=== PATIENT | female | born 1960 | race Caucasian/White ===

== ENCOUNTER 2017-11-24 18:10 | Emergency (ER) | payer MEDICAID ==
[2017-11-24 18:10] VITALS: BMI 26.5
[2017-11-24 18:35] VITALS: RESP 20
[2017-11-24] MEDS ORDERED: Sodium Chloride 0.9% 1,000 ML IV ONE (19:09)
[2017-11-24 19:48] LABS: BASO % 0.7 % (0.0-2.0); EOS # 0.1 K/uL (0.0-0.7); EOS % 1.4 % (0.0-4.0); HEMOGLOBIN 12.8 g/dL (11.0-16.0); LYMPH # 1.4 K/uL (1.0-4.3); LYMPH % 22.6 % (20.0-40.0); MEAN CELL VOLUME 73.7 fL (81.0-99.0); MEAN CORPUSCULAR HEMOGLOBIN 23.5 pg (27.0-31.0); MEAN CORPUSCULAR HGB CONC 31.8 g/dL (33.0-37.0); MEAN PLATELET VOLUME 7.8 fL (7.2-11.7); MONO % 15.4 % (0.0-10.0); NEUT # 3.7 K/uL (1.8-7.0); NEUT % 59.9 % (50.0-75.0); RBC 5.46 Mil/uL (3.80-5.20); RED CELL DISTRIBUTION WIDTH 20.5 % (11.5-14.5); WHITE BLOOD COUNT 6.2 K/uL (4.8-10.8)
[2017-11-24 20:04] LABS: SQUAMOUS EPITHIAL 15 /hpf (0-5); URINE BACTERIA MOD (<OCC); URINE BILIRUBIN NEGATIVE (NEGATIVE); URINE BLOOD 3+ (NEGATIVE); URINE CLARITY Hazy (Clear); URINE COLOR Yellow (YELLOW); URINE GLUCOSE (UA) 2+ mg/dL (Normal); URINE HYALINE CAST >20 /lpf (0-2); URINE LEUKOCYTE ESTERASE TRACE Leu/uL (Negative); URINE PROTEIN 2+ mg/dL (NEGATIVE); URINE UROBILINOGEN NORMAL mg/dL (0.2-1.0); WBC CLUMPS FEW /hpf
[2017-11-24 20:06] LABS: ALBUMIN 4.2 g/dL (3.5-5.0); CALCIUM 9.4 mg/dl (8.6-10.4); GFR AFRICAN-AMERICAN > 60; GFR NON-AFRICAN AMERICAN > 60; LIPASE 222 U/L (23-300)
[2017-11-24 20:07] LABS: ALT/SGPT 43 U/L (9-52); AST/SGOT 41 U/L (14-36); BLOOD UREA NITROGEN 10 mg/dL (7-17)
[2017-11-24] MEDS ORDERED: Potassium Chloride 20 mEq ER Tab PO STA (20:15)
--- NOTE | 2017-11-24 20:24 | C.PDOC ---
History Of Present Illness 57yo female with history of high cholesterol, comes to ER with complaints of nausea, vomiting and diarrhea 3-5 episodes per day x 7 days. Patient states the symptoms started while she was in the [place]. She states she went to a clinic and was given an Amoxicillin course x 7 days, which she took and made her symptoms worse. She reports the vomiting is non-bloody and non-bilious and the diarrhea is watery and non-bloody. She denies any associated chest pain or shortness of breath. No other medical complaints. Time Seen by Provider: 11/24/17 18:53 Chief Complaint (Nursing): Abdominal Pain History Per: Patient History/Exam Limitations: no limitations Onset/Duration Of Symptoms: Days Current Symptoms Are (Timing): Still Present Associated Symptoms: Nausea, Vomiting, Diarrhea. denies: Back Pain, Chest Pain Recent travel outside of the [place]: Yes ([facility]) Past Medical History Reviewed: Historical Data, Nursing Documentation, Vital Signs Vital Signs: Last Vital Signs Temp 98.2 F 11/24/17 22:34 Pulse 95 H 11/24/17 22:34 Resp 20 11/24/17 22:34 BP 105/72 11/24/17 22:34 Pulse Ox 99 11/24/17 23:01 - Medical History PMH: Anemia Surgical History: No Surg Hx - [facility] Procedures D & C NEC (09/12/13) PACKED CELL TRANSFUSION (08/28/13) Family History: States: No Known Family Hx - Social History Hx Tobacco Use: No Hx Alcohol Use: No Hx Substance Use: No - Immunization History Hx Tetanus Toxoid Vaccination: No Hx Influenza Vaccination: No Hx Pneumococcal Vaccination: No Review Of Systems Except As Marked, All Systems Reviewed And Found Negative. Constitutional: Negative for: Fever, Chills Cardiovascular: Negative for: Chest Pain Respiratory: Negative for: Shortness of Breath Gastrointestinal: Positive for: Nausea, Vomiting, Diarrhea. Negative for: Abdominal Pain Physical Exam - Physical Exam Appears: Non-toxic, No Acute Distress Skin: Normal Color, Warm, Dry Head: Atraumatic, Normacephalic Eye(s): bilateral: Normal Inspection Neck: Normal ROM, Supple Chest: Symmetrical Cardiovascular: Rhythm Regular Respiratory: Normal Breath Sounds Gastrointestinal/Abdominal: Normal Exam, Soft, No Tenderness, No Guarding, No Rebound Back: Normal Inspection, No CVA Tenderness, No Vertebral Tenderness Extremity: Normal ROM, No Pedal Edema Neurological/Psych: Oriented x3 ED Course And Treatment - Laboratory Results Result Diagrams: 11/24/17 19:44 11/24/17 19:44 O2 Sat by Pulse Oximetry: 99 (RA) Pulse Ox Interpretation: Normal Medical Decision Making Medical Decision Making: Assessment: Vomiting, diarrhea Plan: -- Labs -- XR Obstructive series -- C.Diff culture -- Urinalysis -- IV Fluids -- Zofran 4mg IV -- Pepcid 20mg IV -- K-Dur 20meq PO abd. pain patient states improvement. obs. series prel. read as negative cdiff - pending and not available tonight. will discharge home and advise follow up with pmd within 2 days Disposition Counseled Patient/Family Regarding: Studies Performed, Diagnosis, Need For Followup, Rx Given - Disposition Referrals: Arya Naranjo MD [Staff Provider] - Disposition: HOME/ ROUTINE Disposition Time: 23:01 Condition: IMPROVED Additional Instructions: follow up with your doctor within 2 days call to make an appointment take medications as needed return to ER if symptoms worsens or progress your stool cultures will result within 24-48 hours Prescriptions: Famotidine [Pepcid] 20 mg PO BID #20 tab Ondansetron ODT [Zofran ODT] 4 mg PO TID PRN #12 odt PRN Reason: Nausea/Vomiting Instructions: Diarrhea in Adolescents and Adults, Acute Abdomen (Belly Pain), Adult (DC) Forms: [facility] (Palestinian), General Discharge Instructions - Clinical Impression Clinical Impression: Abdominal pain, Diarrhea - Scribe Statement The provider has reviewed the documentation as recorded by the Rebecca Bowser Provider Attestation: All medical record entries made by the Rebecca were at my direction and personally dictated by me. I have reviewed the chart and agree that the record accurately reflects my personal performance of the history, physical exam, medical decision making, and the department course for this patient. I have also personally directed, reviewed, and agree with the discharge instructions and disposition.
[2017-11-24] MEDS ORDERED: Potassium Chloride 20 mEq ER Tab PO ONE (22:08)
[2017-11-24 22:35] VITALS: BP 105/72; PULSE 95; TEMP 98.2
[2017-11-24 23:01] VITALS: O2SAT 99
--- NOTE | 2017-11-25 09:51 | RAD ---
Date of service: 11/24/2017 PROCEDURE: Radiographs of the chest and abdomen (obstructive series) HISTORY: abd pain COMPARISON: No prior. TECHNIQUE: AP radiograph of the chest, with upright and supine radiographs of the abdomen. FINDINGS: CHEST: Lungs: No acute pulmonary disease appreciated bilaterally. Cardiovascular: Normal size heart. No pulmonary vascular congestion. Pleura: No pleural fluid. No pneumothorax. Other findings: None. ABDOMEN AND PELVIS: Bowel: Unremarkable bowel gas pattern. No evidence of mechanical obstruction. Free air: None. Bones: Unremarkable. Other findings: None. IMPRESSION: Unremarkable radiographs of chest and abdomen. No evidence of mechanical bowel obstruction.
== END 2017-11-24 23:11 | disposition home or self-care (01) ==
LOC: C.ER 18:10
DX: R10.9 Unspecified abdominal pain (principal); R19.7 Diarrhea, unspecified; E87.6 Hypokalemia
CPT/HCPCS: 74022; 80053; 81001; 83690; 84484; 85025; 96361; 96374; 96375; 99284; J2405; J7030